=== PATIENT | female | born 1950 | race Caucasian/White ===

== ENCOUNTER 2019-08-22 15:42 | Outpatient (CLI) | payer MEDICARE, BC ==
[2019-08-22 16:15] LABS: CREATININE 0.7 mg/dL (0.4-1.0)
[2019-08-22] MEDS ORDERED: IOVERSOL 320 100 ML VIAL IVP ONE (17:22)
[2019-08-22] MEDS ORDERED: IOVERSOL 320 50 ML VIAL PO ONE (17:22)
--- NOTE | 2019-08-22 18:24 | CT Report ---
Reason: ESOPHAGEAL MASS Procedure Date: 08/22/2019 Accession Number: [id number] / [id number] Procedure: CT - CHEST W CPT Code: FULL RESULT: EXAM: CT CHEST EXAM DATE: 08/22/2019 05:17 PM. CLINICAL HISTORY: Esophageal mass. COMPARISONS: None. TECHNIQUE: Routine helical CT imaging was performed through the chest. IV contrast: 100 mL Optiray 320. Reconstructions: Coronal and sagittal. In accordance with CT protocol optimization, one or more of the following dose reduction techniques were utilized for this exam: automated exposure control, adjustment of mA and/or KV based on patient size, or use of iterative reconstructive technique. FINDINGS: Lungs/Pleura: There is a 4 mm peripheral right lower lobe nodule series 3 image 161. A 6 mm subpleural nodule is also seen on image 192. No confluent lung consolidation. No pleural effusion or pneumothorax. Mediastinum: Normal heart size. No pericardial effusion. No mediastinal or hilar lymphadenopathy. There is an eccentric 5.2 x 2.8 x 4.7 cm mass involving the right lateral margin of the distal esophagus and gastroesophageal junction. No esophageal obstruction seen. Postoperative changes seen involving the stomach including gastroesophageal junction. Bones: Unremarkable. Visualized Abdomen: Please refer to abdomen CT report. Other: None. IMPRESSION: 1. 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 2. No mediastinal lymphadenopathy. 3. There are 2 subcentimeter peripheral right lung nodules. Given esophageal findings, consider follow-up chest CT in 3-6 months. FATUMA The call report notification system was initiated by Dr. Elijah Johnson at 06:23 PM on 08/22/2019. ADDENDUM: 08/22/19 18:49 The above call report findings were discussed with Dr. Smith by Dr. Elijah Johnson at 06:49 PM on 08/22/2019.
--- NOTE | 2019-08-22 18:30 | CT Report ---
Reason: ESOPHAGEAL MASS Procedure Date: 08/22/2019 Accession Number: [id number] / [id number] Procedure: CT - Abdomen/Pelvis W CPT Code: FULL RESULT: EXAM: CT ABDOMEN AND PELVIS EXAM DATE: 08/22/2019 05:17 PM. CLINICAL HISTORY: Esophageal mass. COMPARISONS: None. TECHNIQUE: Routine helical CT imaging was performed through the abdomen and pelvis. IV contrast: Optiray 320 100 mL. Enteric contrast: No. Reconstructions: Coronal and sagittal. In accordance with CT protocol optimization, one or more of the following dose reduction techniques were utilized for this exam: automated exposure control, adjustment of mA and/or KV based on patient size, or use of iterative reconstructive technique. FINDINGS: Lung Bases: There is eccentric mural thickening involving the distal esophagus up to the gastroesophageal junction. Postoperative changes noted secondary to gastric reduction surgery. Liver: Several benign-appearing liver cysts measuring up to 3.7 cm in the left hepatic lobe. No suspicious liver mass. Gallbladder/Bile Ducts: Unremarkable. Spleen: Normal. Pancreas: Normal. Adrenal Glands: Normal. Kidneys: There is an 8 mm right renal cortical cyst. The kidneys are otherwise unremarkable. No retroperitoneal lymphadenopathy. Peritoneal Cavity/Bowel: Normal. No free fluid, free air or adenopathy. No masses or acute inflammatory process. No evidence of appendicitis. Pelvic Organs: Normal. The bladder and visualized pelvic organs are within normal limits. Vasculature: Atherosclerotic aorta without evidence of aneurysm. Bones: No significant abnormality. Other: None. IMPRESSION: 1. 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 2. Benign-appearing left hepatic lobe cysts. 3. No evidence of abdominal pelvic metastases. RAD[facility] The call report notification system was initiated by Dr. Elijah Johnson at 06:29 PM on 08/22/2019. The above call report findings were discussed with Dr. Smith by Dr. Elijah Johnson at 06:35 PM on 08/22/2019.
== END 2019-08-22 15:43 | disposition home or self-care (01) ==
LOC: LAB 15:42
PROVIDERS: ATTEND Surgery
DX: D49.0 Neoplasm of unspecified behavior of digestive system (principal); R91.8 Other nonspecific abnormal finding of lung field; K76.89 Other specified diseases of liver
CPT/HCPCS: 36415; 71260; 74177; 82565; Q9967

== ENCOUNTER 2020-01-17 13:58 | Emergency (ER) | payer MEDICARE, BC ==
[2020-01-17 14:10] VITALS: BP 116/64
--- NOTE | 2020-01-17 14:15 | ED Physician Documentation ---
History of Present Illness - Stated complaint Stated Complaint: PORT DEACCESSED - Chief complaint Chief Complaint: General - History obtained from History obtained from: Patient - History of Present Illness Timing: Today Pain level max: 0 Pain level now: 0 - Additonal information Additional information: 69-year-old female states that she had an infusion in her port yesterday. She states that it was not de-accessed at the end of the infusion. Here to have it de-accessed. No other complaints Review of Systems Constitutional: denies: Fever PD PAST MEDICAL HISTORY - Past Medical History Cardiovascular: Hypertension Respiratory: Asthma Neuro: None Endocrine/Autoimmune: Other (Hx of DM 2 but resolved after gastric sleeve 5 yea rs ago) GI: Other (gastric sleeve years ago without problems. ) : None Musculoskeletal: None Derm: None - Past Surgical History General: Bowel surgery, Gastric surgery (Gastric sleeve approximately 5 years ago. She has lost 130 pounds) Ortho: Spine surgery - Present Medications Home Medications: Ambulatory Orders Medication Instructions Recorded Confirmed Buspirone HCl 10 mg PO DAILY 07/06/19 07/06/19 Gabapentin 300 mg PO QPM 07/06/19 07/06/19 Pantoprazole Sodium [Protonix] 40 mg PO QDAC 07/06/19 07/06/19 Tramadol HCl 25 mg PO DAILY PRN 07/06/19 07/06/19 raNITIdine HCL [Ranitidine HCl] 150 mg PO DAILY 07/06/19 07/06/19 - Allergies Allergies/Adverse Reactions: Allergies Allergy/AdvReac Type Severity Reaction Status Date / Time No Known Drug Allergies Allergy Verified 01/17/20 14:06 - Social History Does the pt smoke?: No Smoking Status: Former smoker Does the pt drink ETOH?: Yes Does the pt have substance abuse?: No PD ED PE NORMAL - Vitals Vital signs reviewed: Yes - General General: Alert and oriented X 3, No acute distress - HEENT HEENT: Moist mucous membranes - Derm Derm: Warm and dry, Other (Port in right upper chest without signs of infection) - Neuro Neuro: Alert and oriented X 3 Results - Vitals Vitals: Vital Signs - 24 hr 01/17/20 14:06 Temperature 36.7 C Heart Rate 90 Respiratory 14 Rate Blood Pressure 116/64 O2 Saturation 98 Oxygen O2 Source Room air PD MEDICAL DECISION MAKING - ED course Complexity details: considered differential, d/w patient ED course: Port was de-accessed. Patient tolerated well. No signs of infection. This document was made in part using voice recognition software. While efforts are made to proofread this document, sound alike and grammatical errors may occur. Departure - Departure Disposition: 01 Home, Self Care Clinical Impression: Encounter for care related to vascular access port Condition: Good Instructions: ED PICC Line Care Follow-Up: your,doctor as needed. [Other] Comments: Your port was de-accessed. Return if you worsen.
== END 2020-01-17 14:18 | disposition home or self-care (01) ==
LOC: ED 13:58
DX: Z45.2 Encounter for adjustment and management of vascular access device (principal); I10 Essential (primary) hypertension; Z87.891 Personal history of nicotine dependence
CPT/HCPCS: 99281